=== PATIENT | female | born 1975 | race Caucasian/White ===

== ENCOUNTER 2023-04-11 12:43 | Outpatient (REF) | payer OTHER, SELFPAY ==
--- NOTE | ~2023-04-11 | MM_ITS ---
EXAMINATION: MM SCREENING DIGITAL BREAST TOMOSYNTHESIS, BILATERAL CLINICAL INFORMATION: Screening. Asymptomatic. COMPARISON: Mammography: This study is compared with the only prior examination from 2015. This imaging is from [facility] in [place], [place]. TECHNIQUE: Digital breast tomosynthesis is performed in both the craniocaudal and mediolateral oblique views along with computer-aided detection (CAD). Synthesized 2D images are generated from the tomosynthesis. FINDINGS: There are scattered areas of fibroglandular density (ACR BI-RADS breast composition Category b). Just above the posterior nipple line and in the deep third of the left breast, there is an asymmetry which warrants additional mammographic and targeted sonographic evaluation. There is a tissue marker in the subareolar region of the left breast from prior benign percutaneous biopsy of a 17 mm oval, heterogeneous, hypoechoic mass in the 12:00 position at the areolar edge. The mass show through transmission and has its long axis parallel to the long axis of the chest wall. All these findings taken together most consistent with a biopsy-proven fibroadenoma. This finding was present on the 06/12/2014 breast ultrasound and 06/18/2014 ultrasound-guided biopsy imaging. In the right breast, there are no significant masses, abnormal calcifications, or other abnormalities. The patient has a unilateral right nipple ring. MM/MM tomosynthesis screening BI IMPRESSION: Asymmetry of the deep third of the left breast warrants additional mammographic and targeted sonographic imaging. Evidence of prior benign biopsy of the subareolar region of the left breast. No mammographic signs of malignancy right breast. ASSESSMENT: BI-RADS BI-RADS 0 - Incomplete: Needs additional Imaging. RECOMMENDATION: 1. Additional views of the left breast 2. Targeted ultrasound if warranted after review of the additional views. 3. Radiology department staff will contact the patient for additional imaging. 1 year F/U This examination should not preclude the clinical evaluation of a suspicious palpable abnormality. This patient's information was entered into a reminder system with a target due date for their next mammogram.
== END 2023-04-11 12:44 | disposition home or self-care (01) ==
LOC: HO.MAMMO 12:43
DX: Z12.31 Encounter for screening mammogram for malignant neoplasm of breast (principal)
CPT/HCPCS: 77063; 77067

== ENCOUNTER → 2023-04-11 13:00 | Outpatient (BNV) | payer OTHER, SELFPAY | PROVIDERS: Visit Provider Radiology Diagnostic Radiology | DX: Z12.31 Encounter for screening mammogram for malignant neoplasm of breast (principal) | CPT/HCPCS: 77063; 77067 ==

== ENCOUNTER 2023-05-02 13:57 | Outpatient (REF) | payer OTHER, SELFPAY ==
--- NOTE | ~2023-05-02 | US_ITS ---
EXAMINATION: MM DIAGNOSTIC DIGITAL BREAST TOMOSYNTHESIS, LEFT US BREAST LIMITED, LEFT MAMMOGRAPHY: CLINICAL INFORMATION: Diagnostic follow-up for oval mass seen in the left MLO view only just along the nipple line, posterior one third, measuring approximately 1.9 cm in diameter. This is not well seen on the orthogonal projection and may be obscured. 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 COMPARISON: Mammography: 04/11/2023; 06/18/2014 mammography and ultrasound left breast ([facility]) TECHNIQUE: Digital left breast tomosynthesis is performed in the following views: Full-field left 3-D mediolateral view, 3-D spot compression left MLO, and left CC x2. This was followed by targeted left ultrasound. FINDINGS: The breasts are heterogeneously dense, which may obscure small masses (ACR BI-RADS breast composition Category c). In the 10:00 axis of the left breast, posterior one third, only seen on the MLO projection and spot compression MLO is a 1.9 cm oval circumscribed mass which is not well seen on the CC spot compression views or the prior cc view. It locates medial on the tomographic images and is likely off the border of the film on these images. This will be evaluated by ultrasound. In the 12:00 axis of the periareolar left breast is a ribbon-shaped biopsy clip within a oval circumscribed 0.8 cm mass, known biopsied benign fibroadenoma. No additional abnormality identified in the left breast. There is a benign-appearing lymph node in the tail of [place]. ULTRASOUND: CLINICAL INFORMATION: Evaluate circumscribed mass seen on left MLO view only along the nipple line posterior one third. COMPARISON: No prior ultrasound of relevance. TECHNIQUE: Targeted sonographic evaluation left breast was performed using a high frequency linear transducer. Attention was focused on the medial slightly upper left breast. Selected archived documentation. FINDINGS: LEFT BREAST: -Within the left breast at the 10:00 axis, 8 cm from the nipple, there is a hypoechoic circumscribed oval mass measuring 1.6 x 0.9 x 1.6 cm. This demonstrates good through transmission, a pseudocapsule, and a scant amount of color Doppler flow in the margin. This is most consistent with a probable fibroadenoma, although ultrasound-guided biopsy is recommended for confirmation. No additional abnormalities sonographically in the left breast upper inner quadrant. US/US breast LT limited mamm only IMPRESSION: Oval mass left breast 10:00 axis, 8 cm from the nipple, measuring 1.6 x 0.9 x 1.6 cm most likely a fibroadenoma. Ultrasound-guided biopsy recommended for confirmation. Otherwise, stable benign findings left breast. Above findings and recommendations were communicated to the patient via field nurse case manager. OVERALL ASSESSMENT: Mammography: BI-RADS 4 - Suspicious finding Ultrasound: BI-RADS 4 - Suspicious finding RECOMMENDATION: Biopsy recommended
== END 2023-05-02 13:58 | disposition home or self-care (01) ==
LOC: HO.MAMMO 13:57
PROVIDERS: Visit Provider Advanced Practice Midwife
DX: R92.8 Other abnormal and inconclusive findings on diagnostic imaging of breast (principal); N64.89 Other specified disorders of breast
CPT/HCPCS: 76642; 77061; 77065

== ENCOUNTER → 2023-05-02 14:00 | Outpatient (BNV) | payer OTHER, SELFPAY | PROVIDERS: Visit Provider Radiology Diagnostic Radiology | DX: R92.8 Other abnormal and inconclusive findings on diagnostic imaging of breast (principal) | CPT/HCPCS: 76642; 77061; 77065 ==

== ENCOUNTER 2023-12-16 13:08 | Emergency (ER) | payer OTHER, SELFPAY ==
--- NOTE | ~2023-12-16 | XR_ITS ---
EXAMINATION: XR CHEST 2 VIEWS CLINICAL INFORMATION: cp, dyspnea COMPARISON: No prior chest x-ray available in our system for comparison at the time of this dictation. TECHNIQUE: XR CHEST 2 VIEWS, 2 Views Lungs and Valerie: Both lungs are clear. Pleura: Normal. Costophrenic angles are sharp. No pneumothorax. Heart: The heart is normal in size. Mediastinum: The mediastinum is within normal limits.. Bones: Skeletal structures included are normal for patient's age. XR/XR chest 2V IMPRESSION: Normal chest x-ray. Electronically signed by: Mayda Burns MD 12/16/2023 02:44 PM EDT
--- NOTE | 2023-12-16 13:09 | ECG_ITS ---
Test Reason : chest pain Blood Pressure : / mmHG Vent. Rate : 087 BPM Atrial Rate : 087 BPM P-R Int : 166 ms QRS Dur : 068 ms QT Int : 356 ms P-R-T Axes : 071 018 037 degrees QTc Int : 428 ms Normal sinus rhythm Possible Left atrial enlargement Septal infarct , age undetermined Abnormal ECG When compared with ECG of 22-MAY-2014 10:59, Septal infarct is now Present ST now depressed in Anterior leads Referred By: Mandi Covarrubias Electronically Signed By:DUSTY DIMAS
[2023-12-16 13:11] VITALS: BP 162/100; PULSE 90; O2SAT 98
[2023-12-16 13:12] VITALS: BP 131/84; PULSE 85; RESP 18; TEMP 36.3; O2SAT 100; BMI 24.5
--- NOTE | 2023-12-16 13:12 | ED_ITS ---
HPI - General Adult General Chief complaint: Upper Respiratory Symptoms Stated complaint: FLU SX X3D,CP,SOB PER EMS Time Seen by Provider: 12/16/23 16:24 Source: patient Mode of arrival: ambulatory Limitations: no limitations History of Present Illness ED Provider: agatha MTZ narrative: Patient no significant past medical history been coughing for last 3 days wheezing in the nighttime no history of asthma seen her primary care doctor yesterday strep test was negative and prescribed amoxicillin still when she takes a deep breath start coughing low-grade fever no rash her family member sick Related Data Previous Rx's ?Medication ?Instructions ?Recorded omeprazole 20 mg capsule,delayed 20 mg PO DAILY #30 caps 09/01/22 release albuterol sulfate 90 mcg/actuation 2 puff inhalation Q6H PRN 12/16/23 aerosol inhaler shortness of breath or wheezing #8.5 grams benzonatate 200 mg capsule 200 mg PO TID PRN cough #20 caps 12/16/23 cefuroxime axetil 500 mg tablet 500 mg PO BID 7 days #14 tabs 12/16/23 prednisone 20 mg tablet 40 mg (2 x 20 mg) PO DAILY #10 tabs 12/16/23 Allergies Allergy/AdvReac Type Severity Reaction Status Date / Time No Known Allergies Allergy Verified 12/16/23 13:13 Review of Systems 2 Review of Systems: Yes all other systems are reviewed and are negative [facility] Social History Social History Use of substances other than those prescribed or required for medical reasons: No Advance Directives: No Advance Directives Information Provided: No Do you have a plan to hurt others: No Plan Physical Exam ED Vital Signs: Vital Signs - 24 hr 12/16/23 13:12 12/16/23 15:35 12/16/23 15:45 Temperature 97.3 F 98.4 F Pulse Rate 85 86 Respiratory Rate 18 20 Blood Pressure 131/84 139/85 Pulse Oximetry 100 100 100 Oxygen Delivery Method Room Air Room Air Room Air 12/16/23 17:31 Temperature 98.2 F Pulse Rate 102 H Respiratory Rate 18 Blood Pressure 130/60 Pulse Oximetry 98 Oxygen Delivery Method Room Air BMI result Body Mass Index 24.5 Appearance: Alert. Oriented X3. No acute distress. Eyes: No pallor or icterus ENT: Pharynx normal. Oral Mucosa moist Neck: Normal inspection. Neck supple. CVS: Normal heart rate and rhythm. Pulses normal. Respiratory: No respiratory distress. Equal air entry bilateral, prolonged expiration with wheezing Abdomen: Soft and nontender. Bowel sounds are present, no mass palpable, no CVA tenderness Skin: Skin warm and dry. Normal skin color. Normal skin turgor. Extremities: No lower extremity edema. No calf tenderness Neuro: Oriented X 3. Course Course Course Narrative: This is a rapid medical exam performed by Alex Covarrubias NP: Additional HPI, ROS, PE not included below will be deferred to primary provider. Patient is a 48-year-old female presenting via EMS with complaint of flu-like symptoms x 3 days. Ten mins prior to EMS arrival developed chest pain and shortness of breath. Very anxious in triage, took BP cuff off. Plan; EKG, viral swabs, cxr, labs Medications Administered Discontinued Medications Generic Name Dose Route Start Last Admin Trade Name Freq PRN Reason Stop Dose Admin Albuterol Sulfate 2 puff 12/16/23 16:51 12/16/23 17:25 Albuterol Sulfate 90 Mcg 8 Gm Inhaler INHALE 12/16/23 16:52 2 puff ONCE ONE Administration Benzonatate 200 mg 12/16/23 16:51 12/16/23 17:24 Benzonatate 100 Mg Capsule PO 12/16/23 16:52 200 mg ONCE ONE Administration Cefuroxime Axetil 500 mg 12/16/23 17:08 12/16/23 17:24 Cefuroxime Axetil 500 Mg Tablet PO 12/16/23 17:09 500 mg ONCE ONE Administration Prednisone 40 mg 12/16/23 16:51 12/16/23 17:24 Prednisone 20 Mg Tablet PO 12/16/23 16:52 40 mg ONCE ONE Administration Medical Decision Making Medical Decision Making [facility] Narrative: Patient has acute bronchitis improved after nebulizing treatment discharge patient home on inhaler and prednisone Differential Diagnosis Differential Diagnoses: The differential diagnosis associated with the presentation includes Pneumonia atypical infection Lab Data [facility] Lab Attestation statement: I reviewed the patient's lab results. 12/16/23 13:38 12/16/23 13:38 Labs: Lab Results 12/16/23 Range/Units 13:38 WBC 5.6 (4.8-10.8) X10*3/uL RBC 4.21 (4.20-5.50) X10*6/uL Hgb 12.9 (12.0-16.0) g/dl Hct 37.4 (37.0-47.0) % MCV 88.8 (80.0-98.0) fL MCH 30.6 (27.0-33.0) pg MCHC 34.5 (31.0-35.0) g/dl RDW 12.1 (11.0-16.0) % Plt Count 287 (160-400) X10*3/uL MPV 10.4 (9.4-12.3) fL Immature Gran % (Auto) 0.4 (0.0-0.4) % Neut % (Auto) 65.7 (45-73) % Lymph % (Auto) 23.0 (20-40) % [place] % (Auto) 6.5 (2-11) % Eos % (Auto) 3.9 (0-4) % Baso % (Auto) 0.5 (0-2) % Lymph # (Auto) 1.3 (1.2-4.9) X10*3/uL [place] # (Auto) 0.4 (0.1-1.2) X10*3/uL Eos # (Auto) 0.2 (0.0-0.4) X10*3/uL Baso # (Auto) 0.0 (0.0-0.2) X10*3/uL Abs Immat Gran (auto) 0.02 (0.00-0.03) X10*3/uL Absolute Neuts (auto) 3.7 (2.0-8.3) x10*3/uL Absolute Nucleated RBC 0.000 (0.0-0.012) X10*3/uL Nucleated RBC % (auto) 0.0 (0.0-0.2) /100WBC PT 11.3 (10.9-12.4) SEC INR 1.0 (0.9-1.1) Sodium 140 (135-145) mmol/L Potassium 3.5 (3.3-5.1) mmol/L Chloride 108 (96-108) mmol/L Carbon Dioxide 22 (22-29) mmol/L Anion Gap 14 (12-20) BUN 10 (9-16) mg/dL Creatinine 0.90 (0.5-1.4) mg/dL Estim Creat Clear Calc 64.6 Estimated GFR > 60 Random Glucose 102 (60-115) mg/dL Calcium 9.7 (8.4-10.2) mg/dL Total Bilirubin 0.6 (0.0-1.0) mg/dL AST 24 (5-31) U/L ALT 21 (0-31) U/L Alkaline Phosphatase 76 (39-117) U/L Troponin I High Sens < 2.7 (<3.5-17.0) ng/L Total Protein 8.0 (6.5-8.0) g/dL Albumin 4.5 (3.5-5.0) g/dL Influenza Type A (PCR) NEGATIVE (Negative) Influenza Type B (PCR) NEGATIVE (Negative) RSV RNA Qual (PCR) NEGATIVE (Negative) SARS-CoV-2 RNA (RT-PCR) NEGATIVE (Negative) S. pyogenes GrpA LIANE Negative (Negative) Independent Interpretation I performed an independent interpretation of an: Plain X-Ray Radiology Impression Discussion of test interpretation with radiology: I have reviewed the radiologist's reading. Discharge Plan Discharge Clinical Impression: Bronchitis Patient Disposition: Home, Self-Care Instructions: Acute Bronchitis (ED) Additional Instructions: Take medication as prescribed Use inhaler 2 puffs every 4-6 hours for wheezing/cough Follow with your PCP if not better Prescriptions: New benzonatate 200 mg capsule 200 mg PO TID PRN (Reason: cough) Qty: 20 0RF prednisone 20 mg tablet 40 mg PO DAILY Qty: 10 0RF cefuroxime axetil 500 mg tablet 500 mg PO BID 7 Days Qty: 14 0RF albuterol sulfate 90 mcg/actuation HFA aerosol inhaler 2 puff inhalation Q6H PRN (Reason: shortness of breath or wheezing) Qty: 8.5 0RF No Action omeprazole 20 mg capsule,delayed release(DR/EC) 20 mg PO DAILY Qty: 30 0RF Interventions: ED Discharge Assessment Last Done: 12/16/23 17:31 Discharge Date/Time: 12/16/23 17:31 Print Language: Salvadorean
[2023-12-16 13:43] LABS: MANUAL DIFF FLAG NO
[2023-12-16 13:44] LABS: Basophils Percent Auto 0.5 % (0-2); Eosinophils Absolute Auto 0.2 X10*3/uL (0.0-0.4); Eosinophils Percent Auto 3.9 % (0-4); Hematocrit 37.4 % (37.0-47.0); Hemoglobin 12.9 g/dl (12.0-16.0); Imm Gran Abs Auto 0.02 X10*3/uL (0.00-0.03); Imm Gran Pct Auto 0.4 % (0.0-0.4); Lymphocytes Absolute Auto 1.3 X10*3/uL (1.2-4.9); Mean Corpuscular HGB Conc 34.5 g/dl (31.0-35.0); Mean Corpuscular Hemoglobin 30.6 pg (27.0-33.0); Mean Corpuscular Volume 88.8 fL (80.0-98.0); Mean Platelet Volume 10.4 fL (9.4-12.3); Monocytes Absolute Auto 0.4 X10*3/uL (0.1-1.2); Monocytes Percent Auto 6.5 % (2-11); Neutrophils Absolute Auto 3.7 x10*3/uL (2.0-8.3); Neutrophils Percent Auto 65.7 % (45-73); Platelet Count 287 X10*3/uL (160-400); Red Blood Count 4.21 X10*6/uL (4.20-5.50); Red Cell Distribution Width 12.1 % (11.0-16.0); White Blood Count 5.6 X10*3/uL (4.8-10.8)
[2023-12-16 13:52] LABS: IDNOW Serial# 08D9AD1C; Strep A Nucleic Acid Negative (Negative)
[2023-12-16 13:56] LABS: Prothrombin Time 11.3 SEC (10.9-12.4)
[2023-12-16 14:05] LABS: Alanine Aminotransferase 21 U/L (0-31); Albumin Level 4.5 g/dL (3.5-5.0); Alkaline Phosphatase 76 U/L (39-117); Anion Gap 14 (12-20); Aspartate Amino Transferase 24 U/L (5-31); Bilirubin Total 0.6 mg/dL (0.0-1.0); Blood Urea Nitrogen 10 mg/dL (9-16); Calcium 9.7 mg/dL (8.4-10.2); Carbon Dioxide 22 mmol/L (22-29); Chloride 108 mmol/L (96-108); Creatinine Clr Calc Pharmacy 64.6; Estimated Glomerular Filt Rate > 60; Glucose Random 102 mg/dL (60-115); Potassium 3.5 mmol/L (3.3-5.1); Sodium 140 mmol/L (135-145)
[2023-12-16 14:15] LABS: Troponin-I High Sensitivity < 2.7 ng/L (<3.5-17.0)
[2023-12-16 14:20] LABS: Influenza A PCR NEGATIVE (Negative); Influenza B PCR NEGATIVE (Negative); Resp Syncy Virus RNA Qual PCR NEGATIVE (Negative); SARS COV2 PCR INHOUSE NEGATIVE (Negative)
[2023-12-16 15:35] VITALS: BP 139/85; PULSE 86; RESP 20; TEMP 36.9; O2SAT 100
[2023-12-16 15:45] VITALS: O2SAT 100
[2023-12-16] MEDS: Benzonatate 100 MG CAPSULE 200 MG PO (17:24)
[2023-12-16] MEDS: cefuroxime axetiL 500 MG TABLET PO (17:24)
[2023-12-16] MEDS: predniSONE 20 MG TABLET 40 MG PO (17:24)
[2023-12-16] MEDS: Albuterol Sulfate 90 MCG 8 GM INHALER 2 PUFF INHALE (17:25)
[2023-12-16 17:31] VITALS: BP 130/60; PULSE 102; RESP 18; TEMP 36.8; O2SAT 98
== END 2023-12-16 17:31 | disposition home or self-care (01) ==
PROVIDERS: Registered Nurse Emergency; Emergency Provider Internal Medicine
DX: J40 Bronchitis, not specified as acute or chronic (principal); R07.9 Chest pain, unspecified; R06.00 Dyspnea, unspecified; R50.9 Fever, unspecified; R05.9 Cough, unspecified
CPT/HCPCS: 0241U; 36415; 71046; 80053; 84484; 85025; 85610; 87651; 93005; 99283; 99285

== ENCOUNTER 2023-12-18 09:39 | Outpatient (REF) | payer OTHER, SELFPAY ==
--- NOTE | ~2023-12-18 | US_ITS ---
PROCEDURE: US GUIDED BREAST BIOPSY, LEFT CLINICAL INFORMATION: Oval mass 10:00 axis left breast posterior one third for biopsy, probable fibroadenoma. Patient has history of benign biopsy for fibroadenoma at 12:00 axis left breast. Residual recommendations to biopsy 10:00 mass was in May 02, 2023, however the patient put off the actual biopsy until today. COMPARISON: Left breast ultrasound and diagnostic left mammography to 05/02/2023. PROCEDURAL DETAILS: The details of the procedure, as well as the risks, benefits, and alternatives to the procedure were explained to the patient in detail with the aid of an pathology manager and all of her questions were answered, after which written informed consent was obtained. Site and side were confirmed. Timeout was performed. Prior to the procedure, sonography revealed an oval hypoechoic lobular mass at 10:00 axis, 8 cm from the nipple, currently measuring an estimated 1.7 x 1.0 x 1.6 cm (previously measuring approximately 1.6 x 0.9 x 1.6 cm in April 2023). A time-out was performed, the lesion intended for biopsy was targeted, and the skin of the overlying left breast was then marked, prepped and draped in the usual sterile fashion. Using sonographic guidance, sterile technique, and 1% lidocaine without epinephrine for local anesthesia, multiple core biopsies were obtained through the targeted area with a 14G spring loaded WeoGeoera core biopsy device. There was real-time confirmation of appropriate needle passage. Sampling was documented. At the completion of tissue sampling, a single butterfly shaped metallic clip was deposited at the biopsy site. There was no evidence of immediate complication. SPECIMEN: 3 well formed core samples were obtained. DIGITAL POST-PROCEDURE MAMMOGRAPHY: Breast density: The tissue is heterogeneously dense which may obscure small masses. BI-RADS version 5, category C. There are no new mammographic findings demonstrated. The postprocedure 2-view direct digital mammogram reveals satisfactory and accurate positioning of the biopsy clip. No hematoma present. The patient tolerated the procedure well and, after assuring adequate hemostasis, was discharged in good condition after reviewing postbiopsy breast care instructions. Final pathology results are pending. US/US breast ndl core biopsy LT IMPRESSION: 1. No immediate complication from ultrasound-guided percutaneous biopsy left breast. 2. Ultrasound was used to localize and guide marker clip placement. 3. The 2-view direct digital postprocedure mammogram reveals satisfactory positioning of the biopsy clip. 4. Final pathology results are pending. A separate report with final recommendations will be issued once these results are made available. Electronically signed by: Nikko Thomas MD 12/18/2023 12:34 PM EDT
[2023-12-18] MEDS: Lidocaine HCl 1 % MPF 5 ML VIAL 10 ML SUBCUT (11:06)
== END 2023-12-18 09:40 | disposition home or self-care (01) ==
LOC: HO.MAMMO 09:39
PROVIDERS: Visit Provider Advanced Practice Midwife
DX: R92.8 Other abnormal and inconclusive findings on diagnostic imaging of breast (principal); D24.2 Benign neoplasm of left breast
CPT/HCPCS: 19083; 77061; 77065; 88305; 88341; 88342; A4648; C1894

== ENCOUNTER → 2023-12-18 10:00 | Outpatient (BNV) | payer OTHER, SELFPAY | PROVIDERS: Visit Provider Radiology Diagnostic Radiology | DX: N63.25 Unspecified lump in the left breast, overlapping quadrants (principal) | CPT/HCPCS: 19083; 77065 ==